=== PATIENT | male | born 1945 | race Caucasian/White ===

== ENCOUNTER 2018-12-10 08:35 | Inpatient (IN) | payer MEDICARE, BC ==
--- NOTE | 2018-12-10 09:08 | CT ---
CT BRAIN NONCONTRAST: DATE: 12/10/2018 9:01 AM. HISTORY: 73-year-old male with altered mental status and dysarthria. COMPARISON: MRI of 05/07/2013. No prior CTs of head. FINDINGS: There is no evidence of acute intra-axial or extra-axial hemorrhage. There is no midline shift or any other mass effect. There is no extra-axial fluid collection. There is no evidence of obstructive hydrocephalus. Calvarium is intact. There is a small lacunar infarction of moderately low attenuation at the anterior limb of the right internal capsule, which was not present on the prior MRI. There there are also tiny focal moderately hypodense lesions in the bilateral caudate heads. There is a sma ll patch of low attenuation at the left external capsule. None of these were present on the prior MRI. IMPRESSION: 1) small lacunar infarctions of indeterminate ages: at the anterior limb of right internal capsule, b ilateral caudate nuclei heads, and left external capsule. 2) no mass effect or acute intracranial hemorrhage.
[2018-12-10 09:14] LABS: #Basophils 0.1 thou/uL (0.0-0.2); #Eosinphils 0.2 thou/uL (0.0-0.7); #Lymphocytes 1.4 thou/uL (1.20-3.40); #Monocytes 0.6 thou/uL (0.11-0.59); #Neutrophils 4.5 thou/uL (1.40-6.50); %Basophils 1.2 % (0.0-1.0); %Eosinophils 2.4 % (0.0-10.0); %Lymphocytes 21.1 % (21.0-51.0); %Monocytes 8.4 % (0.0-10.0); %Neutrophils 66.9 % (42.0-75.0); Hemoglobin 16.3 g/dL (14.0-18.0); Mean Corpuscular HGB CONC 33.8 g/dL (32.0-36.0); Mean Corpuscular Hemoglobin 29.4 pg (27.0-31.0); Mean Corpuscular Volume 87.1 fL (78.0-98.0); Mean Platelet Volume 8.8 fL (7.4-10.4); Platelet Count 175 thou/uL (130-400); RBC Distribution Width 11.8 % (11.5-14.5); Red Blood Cell (RBC) Count 5.54 mill/uL (4.70-6.10); White Blood Cell (WBC) Count 6.7 thou/uL (4.8-10.8)
[2018-12-10 09:21] LABS: PTT 31.8 SEC (22.9-36.1); Prothrombin Time 12.8 SEC (12.0-14.7)
[2018-12-10 09:31] LABS: ALT (SGPT) 31 U/L (8-55); AST (SGOT) 23 U/L (5-34); Albumin 4.1 g/dL (3.4-4.8); Alkaline Phosphatase 56 U/L (40-150); Anion Gap 17 mmol/L (10-20); BUN (Urea Nitrogen) 21 mg/dL (8.4-25.7); Bilirubin, Total 0.6 mg/dL (0.2-1.2); CK (CPK) 102 U/L (30-200); Calc. Creatinine Clearance 0 mL/min (70-130); Calcium 9.6 mg/dL (7.8-10.44); Carbon Dioxide 24 mmol/L (23-31); Chloride 104 mmol/L (98-107); Estimated GFR-MDRD Greater than 90; Globulin 3.1 g/dL (2.4-3.5); Glucose 143 mg/dL (83-110); Potassium 3.7 mmol/L (3.5-5.1); Protein, Total 7.2 g/dL (5.8-8.1); Sodium 141 mmol/L (136-145)
--- NOTE | 2018-12-10 09:52 | RAD ---
PORTABLE CHEST: HISTORY: Shortness of breath. Chest pain. FINDINGS: The lungs are clear. No infiltrate. The heart and mediastinum are unremarkable. The vasculature is normal. IMPRESSION: No acute findings. POS: H
[2018-12-10] MEDS ORDERED: Ondansetron PF 4 MG/2 ML Vial ONE (10:12)
[2018-12-10] MEDS ORDERED: Iopamidol 370 76% 100 ML VIAL ONE (10:34)
--- NOTE | 2018-12-10 10:34 | CT ---
CT ANGIOGRAM NECK WITH CONTRAST CT ANGIOGRAM BRAIN WITH CONTRAST: DATE: 12/10/2018 HISTORY: 73-year-old male with acute stroke symptoms. Dysarthria and altered mental status, confusion. Telephone report to Dr. Ilya Zamorano of the emergency Department at 10:31 AM 12/10/2018 TECHNIQUE: After IV contrast injection, arterial bolus chasing technique scan performed from mid aortic arch to vertex of head. Coronal and sagittal 3-D MIP reconstructions. FINDINGS: Brachiocephalic: No high-grade stenosis. Right subclavian: Calcified plaque at origin. No high-grade stenosis. Right common carotid: Essentially normal. Right internal carotid: Moderate calcified plaque at bulb and proximal internal carotid, including or igin. No high-grade stenosis. Right carotid siphon: No high-grade stenosis. Cervical right vertebral: Diminutive. Patent. Left subclavian: No high-grade stenosis. Left common carotid: No high-grade stenosis. Left internal carotid: Moderate calcified plaque at bulb and proximal internal carotid, including lee ann gin. No high-grade stenosis. Left vertebral: Also diminutive, but slightly dominant, slightly larger than right. Origin very diffi cult to visualize. No focal short segment high-grade stenosis or occlusion. Intracranial right vertebral: Terminates in PICA. Intracranial left vertebral: Diminutive. Basilar: Diminutive: Diffusely narrow entire length. Bilateral executive pilot: origins bilaterally. Apparently not connected to basilar tip. Bilateral superior cerebellar is: Patent at least proximally. Bilateral MCAs: M1 segments patent and nonstenotic. Bilateral ACAs: A1 and A2 segments patent and no high-grade stenosis. No intracranial aneurysm identified. IMPRESSION: 1) diminutive bilateral vertebral arteries and basilar artery. 2) origin of bilateral posterior cerebral arteries. 3) otherwise negative.
[2018-12-10] MEDS ORDERED: Aspirin Chewable 81 MG TAB ONE (11:25)
[2018-12-10] MEDS ORDERED: Benzonatate 100 MG CAP PO PRN (15:28)
[2018-12-10] MEDS ORDERED: Senokot S 8.6-50 MG TAB PO PRN ×2 (15:28)
[2018-12-10] MEDS ORDERED: Bisacodyl 5 MG TAB PO PRN ×2 (15:28)
[2018-12-10] MEDS ORDERED: Ondansetron PF 4 MG/2 ML Vial IVP PRN ×2 (15:28)
[2018-12-10] MEDS ORDERED: cloNIDine 0.1 MG TAB PO PRN (15:28)
[2018-12-10] MEDS ORDERED: hydrALAZINE 20 MG/ML VIAL SLOW IVP PRN (15:28)
[2018-12-10] MEDS ORDERED: Diabetic Tussin 200 MG/10 ML UDCUP PO PRN (15:28)
[2018-12-10] MEDS ORDERED: Nitroglycerin 0.4 MG TAB (25 Tab Bottle) SL PRN (15:28)
[2018-12-10 15:54] VITALS: BMI 30.3
[2018-12-10] MEDS ORDERED: HumaLOG 300 UNITS/3 ML VIAL SC PRN (16:34)
[2018-12-10] MEDS ORDERED: Dextrose 5% in Water 1,000 ML IV PRN (16:34)
[2018-12-10] MEDS ORDERED: Dextrose 50% Abboject 50 ML SYRINGE SLOW IVP PRN (16:34)
--- NOTE | 2018-12-10 18:30 | HP ---
PRIMARY CARE PHYSICIAN: Brielle Spear MD CHIEF COMPLAINT: Difficulty word finding. HISTORY OF PRESENTING ILLNESS: Mr. Escudero is a very pleasant 73-year-old male with past medical history of diabetes mellitus, hypertension, dyslipidemia, who presented to the emergency room in [place] [facility] with above mentioned complaints. History is mainly obtained by the patient himself and supplemented by his . Case has been discussed with admitting ER physician, Dr. Zamorano, and electronic medical records have been reviewed. Mr. Escudero reports that he went to bed normal around midnight last night and when he woke up this morning, he was confused and was talking gibberish. Normally, he is able to check his blood sugar, but this morning, he forgot how to do it. There was no seizure-like activity. No recent illnesses. No bowel or bladder incontinence. No muscle weakness. He was able to walk to his car with his . gave him his baby aspirin this morning, which he normally takes. He denies any chest pain, shortness of breath, or palpitation either. Upon presentation to the ER, his blood pressure was 177/108. He underwent general examination including a CT scan of the brain, which just showed chronic finding and then he underwent a CT angiogram, which was negative for any thrombus in the head or neck. He was given a full dose aspirin and was transferred to our facility for admission to stroke floor for CVA. PAST MEDICAL HISTORY: 1. Hypertension. 2. Diabetes mellitus. 3. Dyslipidemia. PAST SURGICAL HISTORY: Appendectomy and hernia repair. PSYCHIATRIC HISTORY: No anxiety. No depression. SOCIAL HISTORY: He is and lives with his . No history of drug, tobacco, or alcohol abuse. FAMILY HISTORY: No significant family history of coronary artery disease or stroke. ALLERGIES: NO KNOWN MEDICATION ALLERGIES. HOME MEDICATIONS: As follows; 1. Celecoxib 100 mg daily. 2. Vitamin D3 of 2000 units daily. 3. Insulin Soliqua 100/33 as directed. 4. Losartan-hydrochlorothiazide 50/12.5 mg daily. 5. Glucophage 500 mg at bedtime, 1000 mg in the morning. 6. Januvia 100 mg daily. 7. Arimidex 1 mg daily. 8. Atorvastatin 10 mg daily. 9. Jardiance 10 mg daily. CODE STATUS: Full code discussed with the patient. REVIEW OF SYSTEMS: A 14-point review of system is done. It is negative except for those mentioned in the history and physical. LABORATORY DATA: CBC unremarkable. Serum chemistries unremarkable. Blood sugar 143. Cardiac enzymes, troponin less than 0.010. Lipid panel within normal limits. CT scan of the brain by my review shows small lacunar infarction of indeterminate range without any new acute infarction or mass effect. CT angio of the [place] in neck is negative for any acute thrombus. Chest x-ray by my review shows no pleural effusion, edema, or infiltrate. PHYSICAL EXAMINATION: VITAL SIGNS: Most recent temperature 98.2, heart rate 85, respirations 18, saturating 93% on room air, blood pressure 138/83. GENERAL: No acute distress. Awake, alert, and oriented x3. HEENT: Mucous membrane is moist and pink. No oropharyngeal exudate or erythema. HEENT: Head is normocephalic and atraumatic. Pupils are equal and reactive to light and accommodation. Extraocular movement intact. NECK: Supple without any lymphadenopathy, JVD, or bruit. CHEST AND HEART: Clear to auscultation. He has a loud 2/6 systolic murmur best heard at the apex. Rate rhythm is regular. ABDOMEN: Soft, nontender, nondistended. Positive bowel sounds. EXTREMITIES: Free of any cyanosis, clubbing, or edema. NEUROLOGICAL: On my examination, he has some difficulty to the finger-nose testing, but his speech is clear without any slurring. He seems to be hesitating to talk because he feels that he cannot get the right words out, but he was able to talk to me in short complete sentences. There is no muscle weakness in bilateral extremities, upper and lower. Sensation is intact. Cranial nerves II through XII are grossly intact. PSYCHIATRIC: Normal affect. SKIN: Free of any rashes or bruises. Feels warm and dry to touch. IMPRESSION AND PLAN: 1. Acute cerebrovascular accident. The patient has expressive aphasia, which is still lingering on. Suggestive of acute cerebrovascular accident. Increase his aspirin for now. He most likely will need addition of Plavix. We will consult Stroke team and Neurology. Obtain MRI and echocardiogram as well. We will increase his statin from 10 mg daily to 40 mg daily of atorvastatin. Frequent NIH and neuro checks will be instituted as well. We will restart his blood pressure medication to prevent excessive hypertension at the same time along for permissive hypertension. 2. Diabetes mellitus, well controlled. Restart home medications except for Glucophage to avoid metabolic acidosis or renal failure. Add insulin sliding scale and Accu-Cheks for further control. 3. Dyslipidemia. Increase atorvastatin as above. 4. Deep venous thrombosis and gastrointestinal prophylaxis. 5. Code status, full code discussed with the patient. 6. Disposition, Mr. Escudero is admitted for acute cerebrovascular accident. Estimated length of stay is at least 2 to 3 midnights. Job ID: [id number]
[2018-12-10] MEDS ORDERED: Atorvastatin Calcium 40 MG TAB PO SCH (21:00)
[2018-12-10] MEDS: Famotidine 20 MG TAB PO SCH (21:09)
--- NOTE | 2018-12-10 21:18 | CON ---
DATE OF CONSULTATION: 12/10/2018 CONSULTING PHYSICIAN: Hospitalist Service. IMPRESSION: 1. Acute expressive aphasia and some receptive aphasia consistent with an acute left middle cerebral artery stroke. 2. Aspirin failure. 3. Diabetes. 4. Hypertension. 5. Calcific valve disease. PLAN: 1. Add Plavix. 2. Echocardiogram. 3. MRI of the brain. HISTORY OF PRESENT ILLNESS: Mr. Escudero is a 73-year-old gentleman who awoke this morning and his noted that he was having difficulties. He had trouble remembering the code to turn off the alarm system. She then noticed he was having trouble with some comprehension as well as coming up with appropriate words in a conversation. He was taken to the [facility] Emergency Room. He had a CT scan of the brain done, which showed some old lacunar infarctions. He had a CT angiogram which showed diminutive appearance to the vertebral and basilar artery. He has been transferred over here for care. His cholesterol ratio was 4.0. PAST MEDICAL HISTORY: As listed above. ALLERGIES: NONE REPORTED. SOCIAL HISTORY: No tobacco use. FAMILY HISTORY: Noncontributory. REVIEW OF SYSTEMS: Ten-system review of systems is otherwise negative. PHYSICAL EXAMINATION: GENERAL: He is a healthy-appearing elderly man, in no distress. VITAL SIGNS: Stable. He is afebrile. HEENT: Pupils are equal and reactive. Conjunctivae are clear. Oropharynx is clear. NECK: Supple. No lymphadenopathy. EXTREMITIES: No cyanosis or edema. NEUROLOGIC: He is alert and cooperative. He has some difficulty with verbal command comprehension. His verbal output is clearly impaired with appropriate word-finding difficulties. There is no facial asymmetry noted. He has good applied technologist strength bilaterally. No fix or drift is noted. Sensation is grossly intact. His gait is normal in appearance. No abnormal movements are seen. IMAGING: EKG shows a sinus rhythm. SUMMARY: A 73-year-old gentleman with several vascular risk factors who presents with expressive and receptive language difficulties. Hopefully, this will improve with time. We can add Plavix and I would be happy to follow up with him in the office. Job ID: [id number]
[2018-12-11 05:50] LABS: #Basophils 0.1 thou/uL (0.0-0.2); #Eosinphils 0.1 thou/uL (0.0-0.7); #Lymphocytes 1.4 thou/uL (1.20-3.40); #Monocytes 0.8 thou/uL (0.11-0.59); #Neutrophils 6.1 thou/uL (1.40-6.50); %Basophils 0.6 % (0.0-1.0); %Eosinophils 1.2 % (0.0-10.0); %Lymphocytes 16.7 % (21.0-51.0); %Monocytes 9.3 % (0.0-10.0); %Neutrophils 72.2 % (42.0-75.0); Hemoglobin 15.3 g/dL (14.0-18.0); Mean Corpuscular HGB CONC 32.7 g/dL (32.0-36.0); Mean Corpuscular Hemoglobin 29.8 pg (27.0-31.0); Mean Corpuscular Volume 91.2 fL (78.0-98.0); Mean Platelet Volume 8.7 fL (7.4-10.4); Platelet Count 163 thou/uL (130-400); RBC Distribution Width 11.8 % (11.5-14.5); Red Blood Cell (RBC) Count 5.12 mill/uL (4.70-6.10); White Blood Cell (WBC) Count 8.5 thou/uL (4.8-10.8)
[2018-12-11 05:56] LABS: Anion Gap 12 mmol/L (10-20); BUN (Urea Nitrogen) 20 mg/dL (8.4-25.7); Calc. Creatinine Clearance 105 mL/min (70-130); Calcium 9.2 mg/dL (7.8-10.44); Carbon Dioxide 27 mmol/L (23-31); Chloride 103 mmol/L (98-107); Estimated GFR-MDRD Greater than 90; Glucose 137 mg/dL (83-110); Potassium 3.7 mmol/L (3.5-5.1); Sodium 138 mmol/L (136-145)
[2018-12-11] MEDS: CeleCOXIB 100 MG CAP PO SCH (08:20)
[2018-12-11] MEDS: Alogliptin 25 MG TAB PO SCH (08:20)
[2018-12-11] MEDS: Anastrozole 1 MG TAB PO SCH (08:20)
[2018-12-11] MEDS: Aspirin 325 MG TAB PO SCH (08:21)
[2018-12-11] MEDS: Famotidine 20 MG TAB PO SCH ×2 (08:21→21:07)
[2018-12-11] MEDS: Enoxaparin Sodium 40 MG/0.4 ML SYRINGE SC SCH (08:22)
[2018-12-11] MEDS: Acetaminophen 325 MG TAB PO PRN ×2 (08:22→18:02)
[2018-12-11] MEDS: Clopidogrel Bisulfate 75 MG TAB PO SCH (09:54)
[2018-12-11] MEDS ORDERED: Iopamidol 300 61% 100 ML VIAL FS ONE (10:44)
[2018-12-11] MEDS: HumaLOG 300 UNITS/3 ML VIAL SC PRN (11:28)
--- NOTE | 2018-12-11 13:16 | MRI ---
MRI BRAIN WITH AND WITHOUT CONTRAST: DATE: 12/11/18 HISTORY: 73-year-old male with stroke, CVA. Dysarthria. COMPARISON: No prior brain MRIs. TECHNIQUE: Multiple sequences obtained in axial, sagittal, and coronal planes; pre and post IV injection of gado linium-based contrast agent: 20 mL Multihance. FINDINGS: There is a moderate sized region of gyriform cytotoxic edema with effacement of local sulci in the le ft parietal lobe with strongly restricted diffusion. There is no associated hemorrhage. There is no o ther mass effect, and no midline shift. Ventricles are normal in size and configuration. There are se veral small and tiny old lacunar infarctions, including left parietal centrum semiovale, right fronta l segura radiata. There is no abnormal enhancement. Ventricles are normal in size and configuration. No extra-axial fluid collection. IMPRESSION: 1. Moderate sized acute infarction in the left middle cerebral artery territory. 2. A few small old lacunar infarctions in the bilateral deep cerebral white matter. TASNEEM Drummond POS: [facility]
--- NOTE | 2018-12-11 16:13 | PDOC.PN ---
- Subjective Encounter Start Date: 12/11/18 Encounter Start Time: 16:12 Subjective: feels Ok. no new complaints.speech is still w aphasia - Objective Resuscitation Status - Order Detail: 12/10/18 17:10 Resuscitation Status Routine Resuscitation Status: FULL: Full Resuscitation Discussed with: discussed with pt DAVID Reviewed: Yes Vital Signs & Weight: Vital Signs (12 hours) Temp Pulse Pulse Pulse Resp BP BP 12/11/18 15:20 98.0 F 70 14 12/11/18 12:01 97.9 F 73 16 12/11/18 11:00 12/11/18 08:35 83 90 157/90 H 147/86 H 12/11/18 07:51 99.5 F 74 20 BP Pulse Ox 12/11/18 15:20 128/83 95 12/11/18 12:01 138/81 95 12/11/18 11:00 96 12/11/18 08:35 12/11/18 07:51 159/87 H 92 L Weight Weight 193 lb 9.6 oz I&O: 12/10/18 12/11/18 12/12/18 06:59 06:59 06:59 Intake Total 1210 Balance 1210 Result Diagrams: 12/11/18 05:05 12/11/18 05:05 Additional Labs: Accuchecks 12/11/18 12/11/18 12/10/18 10:56 06:18 19:43 POC Glucose 215 H 138 H 146 H 12/10/18 17:18 POC Glucose 118 H Radiology Reviewed by me: Yes (MRI- ac Left MCA infarct) Phys Exam - Physical Examination Constitutional: NAD HEENT: PERRLA, moist MMs, sclera anicteric, oral pharynx no lesions Neck: no nodes, no JVD, supple, full ROM Respiratory: no wheezing, no rales, no rhonchi Cardiovascular: RRR, no significant murmur Gastrointestinal: soft, non-tender, no distention, positive bowel sounds Musculoskeletal: no edema, pulses present Neurological: non-focal, normal sensation, moves all 4 limbs expressive aphasia Psychiatric: normal affect, A&O x 3 Skin: no rash Dx/Plan (1) Acute CVA (cerebrovascular accident) Code(s): I63.9 - CEREBRAL INFARCTION, UNSPECIFIED Status: Acute Comment: cont ASA low dose. start plavix today. High dose statin started yesterday (2) HTN (hypertension) Code(s): I10 - ESSENTIAL (PRIMARY) HYPERTENSION Status: Acute - Plan plan discussed w/ family, DVT proph w/SCDs cont asa,statin and plavix -: echo tomorrow -: OP INJECTION MOLDING OPERATOR recommended. -: HD stable * . Review of Systems - Review of Systems Constitutional: negative: fever, chills, sweats, weakness, malaise, other ENT: negative: Ear Pain, Ear Discharge, Nose Pain, Nose Discharge, Nose Congestion, Mouth Pain, Mouth Swelling, Throat Pain, Throat Swelling, Other Respiratory: negative: Cough, Dry, Shortness of Breath, Hemoptysis, SOB with Excertion, Pleuritic Pain, Sputum, Wheezing Cardiovascular: negative: chest pain, palpitations, orthopnea, paroxysmal nocturnal dyspnea, edema, light headedness, other Gastrointestinal: negative: Nausea, Vomiting, Abdominal Pain, Diarrhea, Constipation, Melena, Hematochezia, Other Genitourinary: negative: Dysuria, Frequency, Incontinence, Hematuria, Retention , Other Musculoskeletal: negative: Neck Pain, Shoulder Pain, Arm Pain, Back Pain, Hand Pain, Leg Pain, Foot Pain, Other Skin: negative: Rash, Lesions, Konrad, Bruising, Other Neurological: Change in Speech - Medications/Allergies Allergies/Adverse Reactions: Allergies Allergy/AdvReac Type Severity Reaction Status Date / Time No Known Drug Allergies Allergy Verified 12/10/18 15:06 Medications: Current Medications Acetaminophen (Tylenol) 650 mg PO Q4H PRN PRN Reason: Headache/Fever/Mild Pain (1-3) Last Admin: 12/11/18 08:22 Dose: 650 mg Alogliptin Benzoate (Alogliptin) 25 mg PO DAILY [facility] Last Admin: 12/11/18 08:20 Dose: 25 mg Anastrozole (Arimidex) 1 mg PO DAILY [facility] Last Admin: 12/11/18 08:20 Dose: 1 mg Aspirin (Aspirin) 325 mg PO Q[facility] Last Admin: 12/11/18 08:21 Dose: 325 mg Atorvastatin Calcium (Lipitor) 40 mg PO HS [facility] Last Admin: 12/10/18 21:11 Dose: 40 mg Benzonatate (Tessalon) 100 mg PO Q6H PRN PRN Reason: Cough Bisacodyl (Dulcolax) 10 mg PO DAILYPRN PRN PRN Reason: Constipation Celecoxib (Celebrex) 100 mg PO DAILY [facility] Last Admin: 12/11/18 08:20 Dose: 100 mg Cholecalciferol (Vitamin D3) 2,000 units PO DAILY [facility] Last Admin: 12/11/18 08:21 Dose: 2,000 units Clonidine (Catapres) 0.1 mg PO Q4H PRN PRN Reason: SBP > 160____ Clopidogrel Bisulfate (Plavix) 75 mg PO DAILY [facility] Last Admin: 12/11/18 09:54 Dose: 75 mg Dextrose/Water (Dextrose 50%) 25 gm SLOW IVP PRN PRN PRN Reason: Hypoglycemia Enoxaparin Sodium (Lovenox) 40 mg SC 0900 [facility] Last Admin: 12/11/18 08:22 Dose: 40 mg Famotidine (Pepcid) 20 mg PO BID [facility] Last Admin: 12/11/18 08:21 Dose: 20 mg Glucagon (Glucagon) 1 mg IM PRN PRN PRN Reason: Hypoglycemia Guaifenesin (Robitussin Sf) 200 mg PO Q4H PRN PRN Reason: Cough HCTZ/Losartan Potassium (Hyzaar 50/12.5) 1 tab PO DAILY [facility] Last Admin: 12/11/18 08:20 Dose: 1 tab Hydralazine HCl (Apresoline) 10 mg SLOW IVP Q4H PRN PRN Reason: SBP > 180 and HR < 70 Dextrose/Water (D5w) 1,000 mls @ 0 mls/hr IV .Q0M PRN PRN Reason: Hypoglycemia Insulin Human Lispro (Humalog) 0 units SC .MODERATE SLIDING SC PRN PRN Reason: Moderate Correctional Scale Last Admin: 12/11/18 11:28 Dose: 4 unit Insulin Human Lispro (Humalog) 0 units SC .BEDTIME SLIDING SC PRN PRN Reason: Bedtime Correctional Scale Nitroglycerin (Nitrostat) 0.4 mg SL Q5MIN PRN PRN Reason: Chest Pain (Empagliflozin [ (Jardiance] 10 Mg)) 10 mg PO DAILY [facility] Ondansetron HCl (Zofran) 4 mg IVP Q6H PRN PRN Reason: Nausea/Vomiting Pneumococcal 13-Valent Conj Vacc (Prevnar) 0.5 ml IM .ONCE ONE Stop: 12/11/18 16:16 Last Admin: 12/11/18 11:28 Dose: 0.5 ml Senna/Docusate Sodium (Senokot S) 2 tab PO BID PRN PRN Reason: Constipation Last Admin: 12/11/18 08:22 Dose: 2 tab Sodium Chloride (Flush - Normal Saline) 10 ml IVF Q12HR MELANY Sodium Chloride (Flush - Normal Saline) 10 ml IVF PRN PRN PRN Reason: Saline Flush
[2018-12-11] MEDS ORDERED: Prevnar 13-Val Conj/PF 0.5 ML SYRINGE IM ONE (16:15)
[2018-12-11] MEDS ORDERED: Atorvastatin Calcium 20 MG TAB PO SCH (21:00)
[2018-12-12] MEDS: Clopidogrel Bisulfate 75 MG TAB PO SCH (09:01)
[2018-12-12] MEDS: Alogliptin 25 MG TAB PO SCH (09:01)
[2018-12-12] MEDS: Enoxaparin Sodium 40 MG/0.4 ML SYRINGE SC SCH (09:01)
[2018-12-12] MEDS: Famotidine 20 MG TAB PO SCH (09:01)
[2018-12-12] MEDS: CeleCOXIB 100 MG CAP PO SCH (09:02)
[2018-12-12] MEDS: Anastrozole 1 MG TAB PO SCH (09:02)
[2018-12-12] MEDS: Aspirin 325 MG TAB PO SCH (09:05)
[2018-12-12 11:49] VITALS: BP 125/69; TEMP 97.4
[2018-12-12] MEDS: HumaLOG 300 UNITS/3 ML VIAL SC PRN (11:49)
[2018-12-12] MEDS: (Empagliflozin [Jardiance] 10 MG) PO SCH ×2 (15:54→15:55)
--- NOTE | 2018-12-12 23:24 | DIS ---
DATE OF ADMISSION: 12/10/2018 DATE OF DISCHARGE: 12/12/2018 CONDITION AT THE TIME OF DISCHARGE: Stable and improved. DISCHARGE DISPOSITION: Home. PRIMARY CARE PHYSICIAN: Brielle Spear MD DISCHARGE DIAGNOSIS: Acute left MCA infarction. SECONDARY DISCHARGE DIAGNOSES: 1. Hypertension. 2. Dyslipidemia. DISCHARGE MEDICATIONS: New medication: 1. Plavix 75 mg daily. 2. Aspirin 81 mg daily. 3. Atorvastatin 40 mg daily. Dose of atorvastatin is increased from 10 to 40 mg daily. Resume home medications as follows: 1. Jardiance 10 mg daily. 2. Anastrozole 1 mg daily. 3. Januvia 100 mg daily. 4. Metformin 1000 mg in the morning and 500 mg at bedtime. 5. Losartan/hydrochlorothiazide 50/12.5 mg daily. 6. Soliqua insulin as previously dosed at home. IN-HOUSE CONSULTATION: Neurology, Pablo Oneill MD PROCEDURES DONE IN THE HOSPITAL: 1. CT scan of the brain which shows small lacunar infarctions of indeterminate age at the anterior limb of right internal capsule, bilateral caudate nuclei head and left external capsule without any acute hemorrhage or mass. 2. CT angio of the [place] which shows diminutive bilateral vertebral arteries and basilar artery and origin of bilateral posterior cerebral arteries. 3. MRI of the brain which shows moderate-size acute infarction in the left middle cerebral artery and very small old lacunar infarctions in the bilateral deep cerebral white matter. HISTORY OF PRESENTING ILLNESS: Mr. Escudero is a very pleasant 73-year-old male with past medical history of diabetes, hypertension, and dyslipidemia, who presented to [place] [facility] with expressive aphasia with difficulty finding words. At the time of presentation, he was hemodynamically stable and had no other neurological deficits. He underwent a CT scan of the brain in the ER, which was unremarkable for any acute issues and then a CT angio of the head and neck, which once again did not show any thrombus. He was given a full dose aspirin and was admitted for further workup with a presumptive diagnosis of acute CVA. Please see admission history and physical dictated by myself on 12/10/2018. HOSPITAL COURSE: The patient underwent cardiac workup including MRI of the brain and transthoracic echocardiogram. Echocardiogram results are pending at the time of discharge. His MRI did show left-sided MCA infarction. He was seen by Stroke team and continued to work with speech therapist. He had no motor or sensory deficits. He was recommended for outpatient speech therapy, which was provided for him prior to discharge. He was also seen by Neurology, Dr. Oneill, who recommended addition of Plavix on top of his aspirin which was done in the hospital. The patient tolerated it very well. His discharge was delayed because the echocardiogram was delayed. Now, the echo is done and I discussed the possibility of keeping him here for the echocardiogram results, which may be more than 24 hours or they can follow up with primary care physician. They have an appointment with Dr. Spear this coming Sunday, which is 12/16/2018. They opted to follow up with Dr. Spear in the outpatient setting. They will also follow up with Dr. Oneill in 1 to 2 weeks in the outpatient setting. New medication prescriptions were provided to them. Mr. Escudero was seen and examined by myself prior to discharge. PHYSICAL EXAMINATION: VITAL SIGNS: This morning, temperature 97.4, pulse of 66, respirations 16, saturating 97% on room air, blood pressure 125/69. GENERAL: No acute distress. Awake, alert, and oriented x3. CHEST: Clear to auscultation bilaterally. HEART: Rate and rhythm regular. NEUROLOGICAL: Reveals expressive aphasia. Otherwise, no other neurological deficit. DISCHARGE PLAN: Discharge plan was discussed with the patient, his and his daughter, who verbalized understanding. TIME SPENT: Total time spent in the discharge, 32 minutes. Job ID: [id number]
== END 2018-12-12 15:28 | disposition home or self-care (01) | DRG 66 ==
LOC: SCSER 08:35 → 2SE 10:51
PROVIDERS: ADMIT Internal Medicine; ATTEND Internal Medicine
DX: I63.512 Cerebral infarction due to unspecified occlusion or stenosis of left middle cerebral artery (principal); E11.9 Type 2 diabetes mellitus without complications; R47.01 Aphasia; E78.5 Hyperlipidemia, unspecified; I10 Essential (primary) hypertension; R29.703 NIHSS score 3; Z79.899 Other long term (current) drug therapy; Z79.4 Long term (current) use of insulin; Z79.1 Long term (current) use of non-steroidal anti-inflammatories (NSAID)
CPT/HCPCS: 36415; 36416; 70450; 70496; 70498; 70553; 71045; 80048; 80053; 80061; 82550; 84484; 85025; 85610; 85730; 90471; 90670; 93005; 93306; 96374; G0009; J1650; J2405; Q9967

== ENCOUNTER 2019-08-14 12:15 | Day surgery (SDC) | payer MEDICARE, BC ==
[2019-08-13 11:50] VITALS: BMI 31.8
[~2019-08-14 12:15] MED LIST: PROPOFOL 200 MG/20 ML VIAL ONE
--- NOTE | 2019-08-14 14:44 | OP ---
DATE OF PROCEDURE: 08/14/2019 PRIMARY CARE PHYSICIAN: Brielle Spear MD PROCEDURE PERFORMED: Colonoscopy. PREPROCEDURE DIAGNOSIS: History of colon polyps, last colonoscopy in 2012. POSTPROCEDURE DIAGNOSES: 1. Exam to cecum; good bowel preparation. 2. Mild sigmoid diverticulosis. 3. Redundant transverse colon. 4. No polyps seen. 5. Small internal hemorrhoids. 6. Otherwise, normal colonoscopy. DESCRIPTION OF PROCEDURE: Written informed consent was obtained. The patient was brought to the endoscopy suite. Total intravenous anesthesia was administered by Dr. Mina Laguerre and associates. The patient was placed in the left lateral decubitus position. A digital rectal exam was performed, which revealed small external hemorrhoids. A Pentax video colonoscope was inserted through the anal canal and advanced under direct visualization to the cecum. Position in the cecum was verified by transillumination and clear identification of the appendiceal orifice and the ileocecal valve. The quality of the bowel preparation was good. Each colon segment was examined carefully as the colonoscope was slowly withdrawn from the cecum. Haustral folds and vascular pattern appeared normal. The transverse colon was moderately redundant. Occasional diverticular orifices were noted in the sigmoid colon. There was no evidence of active bleeding or infection of any of the diverticula. In the rectum, a retroflexed view demonstrated small internal hemorrhoids that were not actively bleeding. The colon was decompressed as the colonoscope was removed from the patient. He was transferred to the Day Stay surgery area for postprocedure monitoring. There were no immediate complications. RECOMMENDATIONS: 1. Resume previous diet. 2. Resume previous medications including Plavix. 3. Repeat colonoscopy in 5 years if clinically indicated and appropriate. 4. Follow up in GI Clinic as needed. Job ID: [id number]
== END 2019-08-14 15:00 | disposition home or self-care (01) ==
LOC: SDC 12:15
PROVIDERS: ATTEND Internal Medicine Gastroenterology
PROC: 0DJD8ZZ Inspection of Lower Intestinal Tract, Via Natural or Artificial Opening Endoscopic (ICD-10-PCS; principal; 2019-08-14)
DX: Z12.11 Encounter for screening for malignant neoplasm of colon (principal); K57.30 Diverticulosis of large intestine without perforation or abscess without bleeding; K64.8 Other hemorrhoids; E11.9 Type 2 diabetes mellitus without complications; I10 Essential (primary) hypertension; E78.5 Hyperlipidemia, unspecified; G47.30 Sleep apnea, unspecified; Z79.4 Long term (current) use of insulin; Z79.899 Other long term (current) drug therapy; Z86.010 Personal history of colon polyps; Z95.4 Presence of other heart-valve replacement; Z99.89 Dependence on other enabling machines and devices
CPT/HCPCS: 82962; G0105; 36416; J0690; J2704

== ENCOUNTER 2021-04-14 09:45 | Outpatient (CLI) | payer MEDICARE, BC | END 2021-04-14 09:46 | disposition home or self-care (01) | LOC: BICMAMMO 09:45 | PROVIDERS: ATTEND Internal Medicine | DX: M80.00XA Age-related osteoporosis with current pathological fracture, unspecified site, initial encounter for fracture (principal); S32.040A Wedge compression fracture of fourth lumbar vertebra, initial encounter for closed fracture | CPT/HCPCS: 77080 ==